=== PATIENT | female | born 1940 | race Caucasian/White ===

== ENCOUNTER 2017-07-27 19:05 | Emergency (ER) | payer MEDICARE ==
[2012-04-02 10:04] VITALS: BMI 27.4
== END 2017-07-27 20:25 | disposition home or self-care (01) ==
LOC: D.ER 19:05
DX: T63.481A Toxic effect of venom of other arthropod, accidental (unintentional), initial encounter (principal); Y92.029 Unspecified place in mobile home as the place of occurrence of the external cause; I10 Essential (primary) hypertension

== ENCOUNTER 2018-10-17 09:20 | Emergency (ER) | payer MEDICARE ==
[~2018-10-17] VITALS: Ht 170.2 cm; Wt 94.3 kg
[2018-10-17 09:35] VITALS: Ht 170.2 cm; Wt 94.3 kg
[2018-10-17] MEDS ORDERED: PROPRANOLOL HCL20 MG PO (09:38)
[2018-10-17] MEDS ORDERED: HYDROCHLOROTHIA25 MG PO (09:39)
[2018-10-17] MEDS ORDERED: COZAAR25 MG PO (09:39)
[2018-10-17] MEDS ORDERED: CARTIA XT180 MG PO (09:39)
[2018-10-17] MEDS ORDERED: ZYLOPRIM300 MG PO (09:40)
[2018-10-17] MEDS ORDERED: BACLOFEN20 M1 PO (11:53)
[2018-10-17 12:58] VITALS: BP 156/74
== END 2018-10-17 12:58 | disposition home or self-care (01) ==
LOC: D.ER 09:20
DX: M25.532 Pain in left wrist (principal); M25.531 Pain in right wrist; M79.604 Pain in right leg; W01.0XXA Fall on same level from slipping, tripping and stumbling without subsequent striking against object, initial encounter; Y93.89 Activity, other specified; Y92.019 Unspecified place in single-family (private) house as the place of occurrence of the external cause; I10 Essential (primary) hypertension; Z85.828 Personal history of other malignant neoplasm of skin